=== PATIENT | male | born 2000 | race Caucasian/White ===

== ENCOUNTER 2023-04-12 18:25 | Emergency (ER) | payer OTHER ==
--- NOTE | 2023-04-12 18:44 | ERPHSYRPT ---
- History of Present Illness Source: patient Exam Limitations: no limitations Patient Subjective Stated Complaint: pt here for pain to right hand after hitting wall today Triage Nursing Assessment: pt alert, resp easy, skin w/d/p. has swelling to right hand , strong radial pulse Occurred: this afternoon Method of Injury: direct blow Quality: constant Severity of Pain-Max: moderate Severity of Pain-Current: mild Extremities Pain Location: hand: right Modifying Factors: Improves With: movement Associated Symptoms: none Hx Tetanus, Diphtheria Vaccination/Date Given: No Hx Influenza Vaccination/Date Given: Yes Hx Pneumococcal Vaccination/Date Given: No Immunizations Up to Date: No <SHARRI EPPERSON - Last Filed: 04/12/23 19:04> <GAMAL DE LEON - Last Filed: 04/12/23 20:07> - History of Present Illness Physician History: 23 yo WM w R hand pain after punching a wall earlier today. Pain is mild. He denies other injuries at this time. (SHARRI EPPERSON) Allergies/Adverse Reactions: No Known Drug Allergies Allergy (Unverified 04/12/23 18:34) Travel Risk - International Travel Have you traveled outside of the country in past 3 weeks: No - Coronavirus Screening Are you exhibiting any of the following symptoms?: No Close contact with a COVID-19 positive Pt in past 14-21 Days: No - Vaccine Status Have you recieved a Covid-19 vaccination: No <SHARRI EPPERSON - Last Filed: 04/12/23 19:04> - Review of Systems Constitutional: No Symptoms Eyes: No Symptoms Ears, Nose, & Throat: No Symptoms Respiratory: No Symptoms Cardiac: No Symptoms Abdominal/Gastrointestinal: No Symptoms Genitourinary Symptoms: No Symptoms Skin: No Symptoms Neurological: No Symptoms Psychological: No Symptoms Endocrine: No Symptoms Hematologic/Lymphatic: No Symptoms Immunological/Allergic: No Symptoms <SHARRI EPPERSON - Last Filed: 04/12/23 19:04> - Past Medical History Pertinent Past Medical History: No - Past Surgical History Past Surgical History: No - Social History Smoking Status: Never smoker Exposure to second hand smoke: No Drug Use: none Patient Lives Alone: Yes <SHARRI EPPERSON - Last Filed: 04/12/23 19:04> - Physical Exam General Appearance: no apparent distress Eyes, Ears, Nose, Throat Exam: normal ENT inspection Neck Exam: normal inspection, non-tender, supple, full range of motion, No Brudzinski, No Kernig's, No meningismus Cardiovascular/Respiratory Exam: normal breath sounds, regular rate/rhythm, heart sounds normal Abdominal Exam: non-tender, soft Back Exam: normal inspection, normal range of motion, No CVA tenderness, No elvira tebral tenderness Shoulder Exam: normal inspection, non-tender, no evidence of injury Elbow/Forearm Exam: normal inspection, non-tender, no evidence of injury Wrist Exam: normal inspection, non-tender, no evidence of injury Hand Exam: swelling (Edema/TTP over 4th-5th metacarpals/Good radial pulse, d istal sensation, and capillary return) Neuro/Tendon Exam: normal sensation, normal motor functions, normal tendon functions, responds to pain Mental Status Exam: alert, oriented x 3, cooperative Skin Exam: normal color, warm, dry SpO2 Interpretation: normal SpO2: 95 O2 Delivery: Room Air <SHARRI EPPERSON - Last Filed: 04/12/23 19:04> - Nursing Vital Signs Nursing Vital Signs: Initial Vital Signs Temperature 98.4 F 04/12/23 18:37 Pulse Rate 83 04/12/23 18:37 Respiratory Rate 18 04/12/23 18:37 Blood Pressure 126/67 04/12/23 18:37 O2 Sat by Pulse Oximetry 95 04/12/23 18:37 Pain Scale Pain Intensity 5 WNL (SHARRI EPPERSON) - Course Nursing assessment & vital signs reviewed: Yes <SHARRI EPPERSON - Last Filed: 04/12/23 19:04> Ordered Tests: Active Orders 24 hr Category Date Time Status HAND (MINIMUM 3 VIEWS) Stat Exams 04/12/23 18:33 Taken <SHARRI EPPERSON - Last Filed: 04/12/23 19:04> - Progress Progress: improved, pain not gone completely <GAMAL DE LEON - Last Filed: 04/12/23 20:07> - Progress Progress Note: 04/12/23 19:04 Care turned over to Dr. De Leon at 1900 Pain meds refused (SHARRI EPPERSON) 04/12/23 20:03 Patient is checked out to me at shift change from Dr. Epperson with pending x- rays. 23 years old is evaluated for hand injury after he punched the wall. Has intact distal neurovascular. Tenderness in the distal fifth metacarpal and reproducibility with movements at metacarpophalangeal joint. X-rays showed fracture with minimal angulation of the distal metacarpal reviewed by me, official report is pending. Placed in ulnar gutter splint/boxer splint. Recommended Tylenol/ibuprofen, intermittent ice application and outpatient orthopedics follow-up. Discussed signs symptoms of worsening needing return to ER which he seems understanding. 04/12/23 20:05 (GAMAL DE LEON) Medical Desision Making - Diagnostic Testing Diagnostic test were ordered, analyzed, and reviewed by me: Yes Radiological Interpretation: Interpreted by me, Reviewed by me - Risk of complications The pt has a mod risk of morbidity or mortality based on: Need for prescription drug management, Need for minor surgical intervention in patient with know risk factors <GAMAL DE LEON - Last Filed: 04/12/23 20:07> <SHARRI EPPERSON - Last Filed: 04/12/23 19:04> - Departure Departure Disposition: Home Critical Care Time: No <GAMAL DE LEON - Last Filed: 04/12/23 20:07> - Departure Clinical Impression: Hand fracture Condition: Stable Referrals: DOCTOR,NO FAMILY [Primary Care Provider] - Follow up/PCP as directed 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 Tylenol/ibuprofen as needed for pain. Follow-up with orthopedics for reevaluation. Return to ER for any worsening. Prescriptions: Ibuprofen 600 mg PO Q6HPRN PRN 10 Days #20 tablet PRN Reason: Pain
[2023-04-12 20:17] VITALS: BP 110/59; PULSE 68; O2SAT 97
--- NOTE | 2023-04-13 15:07 | XRAY ---
Indication: Pain and swelling following punching injury. Comparison: None 3 view right hand demonstrates mildly angulated fracture distal shaft 5th metacarpal with soft tissue swelling. No other bony, articular, or soft tissue abnormalities.
== END 2023-04-12 20:17 | disposition home or self-care (01) ==
LOC: ED 18:25
DX: S62.326A Displaced fracture of shaft of fifth metacarpal bone, right hand, initial encounter for closed fracture (principal); W22.01XA Walked into wall, initial encounter; Z28.310 Unvaccinated for COVID-19
CPT/HCPCS: 73130; 99283